=== PATIENT | female | born 1935 | race Two or more races ===

== ENCOUNTER 2019-04-08 17:27 | Emergency (ER) | payer OTHER, MEDICAID ==
[~2019-04-08] VITALS: Ht 170.2 cm; Wt 54.4 kg
[2019-04-08 18:07] VITALS: BP 168/71
== END 2019-04-09 00:15 | disposition left against medical advice (07) ==
LOC: ER 17:27
DX: R07.89 Other chest pain (principal); Z53.21 Procedure and treatment not carried out due to patient leaving prior to being seen by health care provider
CPT/HCPCS: 71045